=== PATIENT | male | born 1985 | race Two or more races ===

== ENCOUNTER → 2018-06-22 17:00 | Outpatient (CLI) | payer OTHER | END | disposition home or self-care (01) | LOC: RAD 17:00 | DX: M72.2 Plantar fascial fibromatosis (principal) ==

== ENCOUNTER → 2022-04-12 | Outpatient (CLI) | payer OTHER | END | disposition home or self-care (01) | LOC: LAB 15:50 | PROVIDERS: ATTEND Obstetrics & Gynecology | DX: Z20.822 Contact with and (suspected) exposure to COVID-19 (principal) ==